=== PATIENT | male | born 1990 | race Two or more races ===

== ENCOUNTER 2019-02-18 08:45 | Emergency (ER) | payer OTHER ==
[~2019-02-18] VITALS: Ht 177.8 cm; Wt 59.0 kg
[~2019-02-18 08:45] MED LIST: COLACE100 MG PO; PERCOCET 5/3251 TAB PO
== END 2019-02-18 19:22 | disposition home or self-care (01) ==
LOC: ER 08:45
DX: R10.32 Left lower quadrant pain (principal); K50.90 Crohn's disease, unspecified, without complications

== ENCOUNTER 2019-10-29 13:28 | Emergency (ER) | payer OTHER ==
[~2019-10-29] VITALS: Ht 177.8 cm; Wt 59.0 kg
== END 2019-10-29 17:11 | disposition home or self-care (01) ==
LOC: ER 13:28
DX: K58.9 Irritable bowel syndrome, unspecified (principal); K29.70 Gastritis, unspecified, without bleeding

== ENCOUNTER 2020-05-03 08:31 | Inpatient (IN) | payer OTHER ==
[~2020-05-03] VITALS: Ht 177.8 cm; Wt 60.8 kg
[2020-05-03] MEDS ORDERED: RENFLEXIS100 MG (08:42)
== END 2020-05-07 16:55 | disposition home or self-care (01) | DRG 812 ==
LOC: ER 08:31 → SURH 16:00 → SEC-K 16:00 → SURH 16:43
PROVIDERS: ADMIT Internal Medicine; ATTEND Internal Medicine
PROC: BW21Y0Z Computerized Tomography (CT Scan) of Abdomen and Pelvis using Other Contrast, Unenhanced and Enhanced (ICD-10-PCS; principal; 2020-05-03)
PROC: 30233N1 Transfusion of Nonautologous Red Blood Cells into Peripheral Vein, Percutaneous Approach (ICD-10-PCS; 2020-05-03)
DX: D64.9 Anemia, unspecified (principal); K50.90 Crohn's disease, unspecified, without complications; R53.81 Other malaise; K64.4 Residual hemorrhoidal skin tags; D50.8 Other iron deficiency anemias; Z03.818 Encounter for observation for suspected exposure to other biological agents ruled out; K76.89 Other specified diseases of liver

== ENCOUNTER 2020-08-07 22:52 | Emergency (ER) | payer OTHER ==
[~2020-08-07] VITALS: Ht 177.8 cm; Wt 59.4 kg
[~2020-08-07 22:52] MED LIST changes: +RENFLEXIS100 MG
[2020-08-07] MEDS ORDERED: INTEGRA CAPSUL1 EACH PO (23:16)
== END 2020-08-08 01:53 | disposition home or self-care (01) ==
LOC: ER 22:52
DX: R42 Dizziness and giddiness (principal); K50.918 Crohn's disease, unspecified, with other complication; Z20.828 Contact with and (suspected) exposure to other viral communicable diseases

== ENCOUNTER 2021-03-29 19:49 | Emergency (ER) | payer OTHER ==
[~2021-03-29] VITALS: Ht 177.8 cm; Wt 59.0 kg
[~2021-03-29 19:49] MED LIST changes: +INTEGRA CAPSUL1 EACH PO
== END 2021-03-29 23:14 | disposition home or self-care (01) ==
LOC: ER 19:49
DX: R53.1 Weakness (principal); Z11.52 Encounter for screening for COVID-19

== ENCOUNTER 2022-03-05 04:30 | Inpatient (IN) | payer OTHER ==
[~2022-03-05] VITALS: Ht 177.8 cm; Wt 61.2 kg
[2022-03-10] MEDS ORDERED: PREDNISONE10 M2 PO (16:14)
[2022-03-10] MEDS ORDERED: PREDNISONE20 MG PO (16:14)
[2022-03-10] MEDS ORDERED: PREDNISONE 5MG PO (16:14)
[2022-03-10] MEDS ORDERED: PREDNISONE20 M1 PO (16:14)
== END 2022-03-10 16:35 | disposition home or self-care (01) | DRG 386 ==
LOC: ER 04:30 → SEC-K 15:14 → O/R 03-06 13:25 → SEC-K 03-06 13:26 → MEDI 03-06 16:52
PROVIDERS: ADMIT Internal Medicine; ATTEND Internal Medicine
PROC: 02HV33Z Insertion of Infusion Device into Superior Vena Cava, Percutaneous Approach (ICD-10-PCS; principal; 2022-03-05)
PROC: 3E0436Z Introduction of Nutritional Substance into Central Vein, Percutaneous Approach (ICD-10-PCS; 2022-03-05)
PROC: BW21ZZZ Computerized Tomography (CT Scan) of Abdomen and Pelvis (ICD-10-PCS; 2022-03-05)
DX: K50.012 Crohn's disease of small intestine with intestinal obstruction (principal); K56.690 Other partial intestinal obstruction; E86.0 Dehydration; Z20.822 Contact with and (suspected) exposure to COVID-19

== ENCOUNTER 2023-10-15 16:15 | Emergency (ER) | payer OTHER ==
[~2023-10-15] VITALS: Ht 177.8 cm; Wt 61.7 kg
[~2023-10-15 16:15] MED LIST changes: +PREDNISONE 5MG PO; +PREDNISONE10 M2 PO; +PREDNISONE20 M1 PO; +PREDNISONE20 MG PO
[2023-10-15] MEDS ORDERED: HUMIRA PEN40 MG/0.2 SQ (17:05)
== END 2023-10-15 18:26 | disposition home or self-care (01) ==
LOC: ER 16:16
DX: Z72.51 High risk heterosexual behavior (principal)

== ENCOUNTER 2024-02-20 05:30 | Day surgery (SDC) | payer OTHER ==
[2024-02-12 09:46] LABS: HEMATOCRIT 44.9 % (39.0-48.0); HEMOGLOBIN 15.3 g/dL (13-16.00); MEAN CELL VOLUME 87.2 fL (80.0-100.00); MEAN CORPUSCULAR HEMOGLOBIN 29.7 pg (27.00-32.0); MEAN CORPUSCULAR HGB CONC 34.1 g/dl (32.0-36.0); PLATELET COUNT 198 K/uL (150-450); RED BLOOD COUNT 5.14 M/uL (4.00-6.00); RED CELL DISTRIBUTION WIDTH 13.1 % (11.5-14.5)
[2024-02-12 09:49] LABS: URINE APPEARANCE Clear; URINE BILIRRUBIN Negative (NEGATIVE); URINE BLOOD Negative; URINE COLOR Yellow; URINE GLUCOSE Negative (NEGATIVE); URINE LEUKOCYTE Negative; URINE NITRATE Negative; URINE PROTEIN Negative (NEGATIVE); URINE UROBILINOGEN 0.2 E.U./dl
[2024-02-12 10:14] LABS: INR 0.98; PARTIAL THROMBOPLASTIN TIME 28.9 SECONDS (22.0-34.0); PROTHROMBIN TIME 10.3 SECONDS (9.0-11.5)
[2024-02-12 10:17] LABS: CALCIUM 9.6 mg/dL (8.5-10.1); CREATININE SERUM 0.91 mg/dL (0.70-1.30); GFR 97.17; PHOSPHOROUS 3.2 mg/dL (2.5-4.9); POTASSIUM 5.07 mEq/L (3.5-5.1)
[2024-02-12 10:32] LABS: URINE BACTERIA 1.2 uL (0.0-1933); URINE EPITHELIAL CELLS 0.6 uL (0.0-38.8); URINE RBC 1.4 uL (0.0-20.8); URINE WBC 0.9 uL (0.0-23.2)
[~2024-02-20 05:30] MED LIST changes: +HUMIRA PEN40 MG/0.2 SQ
[2024-02-20] MEDS ORDERED: CEFAZOLIN SODIUM 1,000 MG VIAL ONE ×2 (06:56→07:24)
[2024-02-20] MEDS ORDERED: LIDOCAINE HCL/EPINEPHRINE 10MG/ML 1% 50ML IJ ONE ×2 (07:15→08:15)
[2024-02-20] MEDS ORDERED: BACITRACIN 28.35 GM OINT.TUBE TOP ONE ×2 (07:15→08:15)
[2024-02-20] MEDS ORDERED: POVIDONE-IODINE 118 ML BOTT TOP ONE ×2 (07:16→08:15)
[2024-02-20] MEDS ORDERED: EPINEPHRINE HCL/PF 1 MG/ML AMPUL ONE (07:16)
[2024-02-20] MEDS ORDERED: DEXAMETHASONE SODIUM PHOSPHATE 4 MG/ML VIAL ONE (07:24)
[2024-02-20] MEDS ORDERED: CEFAZOLIN SODIUM 1,000 MG VIAL IV ONE (08:00)
[2024-02-20] MEDS ORDERED: DEXAMETHASONE SODIUM PHOSPHATE 4 MG/ML VIAL IV ONE (08:00)
[2024-02-20] MEDS ORDERED: CIPROFLOXACIN HCL 0.175 MG/DR DROPS OTIC ONE (08:15)
[2024-02-20] MEDS ORDERED: CIPROFLOXACIN2.5 ML OTIC (09:25)
[2024-02-20] MEDS ORDERED: CEPHALEXIN500 MG PO (09:26)
[2024-02-20] MEDS ORDERED: ONDANSETRON HCL 2 MG/ML VIAL IV ONE (10:30)
[2024-02-20] MEDS ORDERED: ONDANSETRON HCL 2 MG/ML VIAL ONE (10:31)
[2024-02-20] MEDS ORDERED: MORPHINE SULFATE 4 MG/ML VIAL IV ONE (10:35)
[2024-02-25] MEDS ORDERED: EPINEPHRINE HCL/PF 1 MG/ML AMPUL IR ONE (19:45)
== END 2024-02-20 11:35 | disposition home or self-care (01) ==
LOC: CIR.AMB 05:30
PROVIDERS: ATTEND Otolaryngology Otology & Neurotology
DX: H72.02 Central perforation of tympanic membrane, left ear (principal); H90.12 Conductive hearing loss, unilateral, left ear, with unrestricted hearing on the contralateral side

== ENCOUNTER 2025-04-08 08:12 | Day surgery (SDC) | payer OTHER ==
[2025-03-31 09:42] LABS: HEMATOCRIT 47.2 % (39.0-48.0); HEMOGLOBIN 15.9 g/dL (13-16.00); MEAN CELL VOLUME 88.6 fL (80.0-100.00); MEAN CORPUSCULAR HEMOGLOBIN 29.9 pg (27.00-32.0); MEAN CORPUSCULAR HGB CONC 33.7 g/dl (32.0-36.0); PLATELET COUNT 209 K/uL (150-450); RED BLOOD COUNT 5.32 M/uL (4.00-6.00); RED CELL DISTRIBUTION WIDTH 13.4 % (11.5-14.5)
[2025-03-31 09:57] VITALS: BP 105/70
[2025-03-31 10:12] LABS: PH,URINE 6.5 (5.0-8.0); URINE APPEARANCE Clear; URINE BILIRRUBIN Negative (NEGATIVE); URINE BLOOD Negative; URINE COLOR Yellow; URINE GLUCOSE Negative (NEGATIVE); URINE KETONE Negative (NEGATIVE); URINE LEUKOCYTE Negative; URINE NITRATE Negative; URINE PROTEIN Negative (NEGATIVE); URINE UROBILINOGEN 0.2 E.U./dl
[2025-03-31 10:14] LABS: URINE BACTERIA 1.2 uL (0.0-1933); URINE EPITHELIAL CELLS 0.6 uL (0.0-38.8); URINE RBC 1.6 uL (0.0-20.8); URINE WBC 1.2 uL (0.0-23.2)
[2025-03-31 10:17] LABS: INR 0.99; PARTIAL THROMBOPLASTIN TIME 27.6 SECONDS (22.0-34.0); PROTHROMBIN TIME 10.8 SECONDS (9.0-11.5)
[2025-03-31 10:40] LABS: ALBUMIN 4.2 gm/dL (3.4-5.0); CALCIUM 9.4 mg/dL (8.5-10.1); CREATININE SERUM 0.89 mg/dL (0.70-1.30); GFR 98.44; PHOSPHOROUS 3.2 mg/dL (2.5-4.9); POTASSIUM 4.65 mEq/L (3.5-5.1)
[~2025-04-08] VITALS: Ht 177.8 cm; Wt 63.5 kg
[~2025-04-08 08:12] MED LIST changes: +CEPHALEXIN500 MG PO; +CIPROFLOXACIN2.5 ML OTIC; +HUMIRA40 MG/0.2 SQ
[2025-04-08] MEDS ORDERED: CEFAZOLIN SODIUM 1,000 MG VIAL ONE (11:00)
[2025-04-08] MEDS ORDERED: POVIDONE-IODINE 118 ML BOTT TOP ONE (12:06)
[2025-04-08] MEDS ORDERED: LIDOCAINE HCL 1%/EPINEPHRINE 20ML VIAL IJ ONE (12:06)
[2025-04-08] MEDS ORDERED: EPINEPHRINE HCL/PF 1 MG/ML AMPUL ONE (12:06)
[2025-04-08] MEDS ORDERED: CIPROFLOXACIN2.5 ML OTIC (14:06)
[2025-04-08] MEDS ORDERED: CEPHALEXIN500 MG PO (14:06)
== END 2025-04-08 16:00 | disposition home or self-care (01) ==
LOC: CIR.AMB 08:12
PROVIDERS: ATTEND Otolaryngology Otology & Neurotology
DX: H72.92 Unspecified perforation of tympanic membrane, left ear (principal); H90.12 Conductive hearing loss, unilateral, left ear, with unrestricted hearing on the contralateral side